=== PATIENT | male | born 1995 | race Caucasian/White ===

== ENCOUNTER 2019-02-25 18:21 | Emergency (ER) | payer SELFPAY ==
[~2019-02-25] VITALS: Ht 185.4 cm; Wt 86.2 kg
[2019-02-25 18:21] VITALS: BP_SYST 118
--- NOTE | 2019-02-25 18:21 | NUR ---
BROUGHT BACK TO BED #8 AND TRIAGED. REPORT GIVEN TO NICANOR
--- NOTE | 2019-02-25 18:25 | NUR ---
Pt c/o L rib pain radiating to L flank. Pt h/o asthma.
--- NOTE | 2019-02-25 18:26 | NUR ---
Pt denies injury or trauma.
--- NOTE | 2019-02-25 18:36 | NUR ---
ER at bedside examining patient.
--- NOTE | 2019-02-25 18:41 | NUR ---
Patient given written and verbal discharge instructions and verbalizes understanding. ER MD discussed with patient the results and treatment provided. Patient in stable condition. ID arm band removed. Rx of motrin given. Patient educated on pain management and to follow up with PMD. Pain Scale 2. Opportunity for questions provided and answered. Medication side effect fact sheet provided.
[2019-02-25 18:56] VITALS: BP_SYST 118
== END 2019-02-25 18:56 | disposition home or self-care (01) ==
LOC: SED 18:21
DX: M94.0 Chondrocostal junction syndrome [Tietze] (principal); J45.909 Unspecified asthma, uncomplicated; Z88.8 Allergy status to other drugs, medicaments and biological substances
CPT/HCPCS: 99282

== ENCOUNTER 2019-03-08 19:17 | Emergency (ER) | payer SELFPAY ==
[~2019-03-08] VITALS: Ht 185.4 cm; Wt 86.2 kg
[2019-03-08 19:25] VITALS: BP_SYST 120
--- NOTE | 2019-03-08 19:28 | NUR ---
Patient to ER bed 1 to gown for evaluation. Side rails up. Report given to Slim RIDER.
--- NOTE | 2019-03-08 19:30 | NUR ---
Pt C/O Lt Rib pain x 2 weeks was seen on the 02/25 for the same cheif complaint. Denies any trauma, reports pain as dull and relieved by hot shower. Was discharged on the with rx for Motrin but unable to fill prescription due to financial reasons. Denies any other symptoms at this time. Will continue to monitor.
--- NOTE | 2019-03-08 20:25 | NUR ---
ER Dr. Machado at bedside examining patient.
[2019-03-08] MEDS ORDERED: IBUPROFEN 600 MG TABLET PO ONE (20:30)
[2019-03-08 21:01] VITALS: BP_SYST 120
--- NOTE | 2019-03-08 21:02 | NUR ---
Patient given written and verbal discharge instructions and verbalizes understanding. ER MD discussed with patient the results and treatment provided. Patient in stable condition. ID arm band removed. Patient educated on pain management and to follow up with PMD. Pain Scale 0. Opportunity for questions provided and answered. Medication side effect fact sheet provided.
== END 2019-03-08 21:02 | disposition home or self-care (01) ==
LOC: SED 19:17
DX: M94.0 Chondrocostal junction syndrome [Tietze] (principal); J45.909 Unspecified asthma, uncomplicated; F17.210 Nicotine dependence, cigarettes, uncomplicated; F12.10 Cannabis abuse, uncomplicated; Z88.8 Allergy status to other drugs, medicaments and biological substances
CPT/HCPCS: 99282

== ENCOUNTER 2019-05-24 12:42 | Emergency (ER) | payer SELFPAY ==
[~2019-05-24] VITALS: Ht 185.4 cm; Wt 90.7 kg
[2019-05-24 12:42] VITALS: BP_SYST 133
--- NOTE | 2019-05-24 12:42 | NUR ---
BROUGHT BACK TO BED #7 AND TRIAGED. REPORT GIVEN TO KALPANA
--- NOTE | 2019-05-24 12:54 | NUR ---
PATIENT TO ER #7 AT [id number]
--- NOTE | 2019-05-24 12:54 | NUR ---
PATIENT PRESENTS TO THE ER WITH HX OF LEFT WRIST PAIN WITH DYSPNEA/COUGH FOR TWO WEEKS; NO TRAUMA, NO OTHER REMARKABLE S/S
[2019-05-24 14:47] VITALS: BP_SYST 133
--- NOTE | 2019-05-24 14:49 | NUR ---
REASSESSMENT BY ERMD; ACI GIVEN PER ERMD; PATIENT DISCHARGED UNCHANGED
--- NOTE | 2019-05-24 14:50 | NUR ---
ERMD EVALUATION 1337
== END 2019-05-24 14:47 | disposition home or self-care (01) ==
LOC: SED 12:42
DX: J20.9 Acute bronchitis, unspecified (principal); J45.909 Unspecified asthma, uncomplicated; Z88.6 Allergy status to analgesic agent
CPT/HCPCS: 99283